=== PATIENT | female | born 1985 | race Caucasian/White ===

== ENCOUNTER 2017-09-09 16:20 | Outpatient (CLI) | payer BC | END 2017-09-09 16:21 | disposition home or self-care (01) | LOC: BICRAD 16:20 | PROVIDERS: ATTEND Family Medicine | DX: Z09 Encounter for follow-up examination after completed treatment for conditions other than malignant neoplasm (principal); Z87.39 Personal history of other diseases of the musculoskeletal system and connective tissue | CPT/HCPCS: 72081 ==

== ENCOUNTER 2019-12-02 12:51 | Day surgery (SDC) | payer BC ==
[2019-12-01 14:06] VITALS: BMI 35.2
[2019-12-02] MEDS ORDERED: Lidocaine 1% PF 5 ML VIAL ONE (13:01)
[2019-12-02] MEDS ORDERED: Sodium Bicarbonate 2.5 MEQ/5 ML VIAL ONE (13:01)
[2019-12-02 15:17] VITALS: BP 125/81; TEMP 98.2
--- NOTE | 2019-12-02 15:52 | ULT ---
PROCEDURE: US Thyroid Needle Bx PROVIDED CLINICAL HISTORY: Dominant nodule left lobe of thyroid gland. Fine-needle aspiration of this nodule was requested to COMPARISON: Thyroid ultrasound 10/30/2019 TECHNIQUE: The procedure including the risks and complications were explained to the patient, and informed conse nt was obtained. Limited sonographic evaluation of the left lobe of thyroid gland was performed. The large heterogeneous nodule in the superior pole left lobe of thyroid gland was localized. The are a was marked and then meticulously prepped and draped in usual sterile fashion. Skin and subcutaneous tissues were infiltrated with buffered 1% lidocaine for local anesthesia. Utili zing concurrent real-time ultrasound guidance, a total of 4 fine-needle aspiration specimens were obtained utilizing a 25-gauge needle. Hemostasis was achieved with direct pressure, and a dry sterile dressing was placed. The patient tolerated the procedure well and without immediate complication. IMPRESSION: Technically successful ultrasound-guided fine-needle aspiration of a dominant heterogeneous nodule le ft lobe of the thyroid gland. Pathology result is currently pending.
== END 2019-12-02 14:10 | disposition home or self-care (01) ==
LOC: ULT 12:51
PROVIDERS: ATTEND Otolaryngology Plastic Surgery within the Head & Neck
PROC: 0GBG3ZX Excision of Left Thyroid Gland Lobe, Percutaneous Approach, Diagnostic (ICD-10-PCS; principal; 2019-12-02)
PROC: BG44ZZZ Ultrasonography of Thyroid Gland (ICD-10-PCS; principal; 2019-12-02)
DX: E04.1 Nontoxic single thyroid nodule (principal); Z79.899 Other long term (current) drug therapy; Z88.8 Allergy status to other drugs, medicaments and biological substances
CPT/HCPCS: 60100; 76942; 88173

== ENCOUNTER 2022-05-28 15:21 | Outpatient (CLI) | payer OTHER ==
[2022-05-28 16:04] LABS: #Eosinphils 0.2 10x3/uL (0.0-0.5); #Monocytes 0.7 10x3/uL (0.0-1.1); #Neutrophils 4.6 10x3/uL (1.5-8.4); %Basophils 0.5 % (0.0-2.0); %Eosinophils 3.3 % (0.0-6.0); %Monocytes 9.8 % (0.0-10.0); %Neutrophils 62.1 % (40.0-75.0); Hemoglobin 13.6 g/dL (12.0-15.5); Mean Corpuscular HGB CONC 32.6 g/dL (32.0-36.0); Mean Corpuscular Hemoglobin 30.2 pg (27.0-33.0); Mean Corpuscular Volume 92.5 fl (81.6-98.3); Mean Platelet Volume 10.9 fl (7.4-10.4); Platelet Count 245 10x3/uL (150-450); RBC Distribution Width 13.1 % (11.5-14.5); Red Blood Cell (RBC) Count 4.51 10x6/uL (3.90-5.03); White Blood Cell (WBC) Count 7.4 10x3/uL (3.5-10.5)
[2022-05-28 16:15] LABS: Anion Gap 13 mmol/L (10-20); BUN (Urea Nitrogen) 13 mg/dL (7.0-18.7); Calc. Creatinine Clearance 0 mL/min (70-130); Calcium 8.6 mg/dL (7.8-10.44); Carbon Dioxide 25 mmol/L (22-29); Chloride 108 mmol/L (98-107); Estimated GFR 115; Glucose 78 mg/dL (70-105); Potassium 3.9 mmol/L (3.5-5.1); Sodium 142 mmol/L (136-145)
== END 2022-05-28 15:22 | disposition home or self-care (01) ==
LOC: LABBT 15:21
PROVIDERS: ATTEND Surgery
DX: Z01.818 Encounter for other preprocedural examination (principal); M79.89 Other specified soft tissue disorders
CPT/HCPCS: 80048; 85025; 93005; 93010

== ENCOUNTER 2022-06-04 11:58 | Day surgery (SDC) | payer OTHER ==
[2022-05-31 11:07] VITALS: BMI 25.7
[2022-06-04] MEDS ORDERED: Midazolam HCl 2 mg/2 ml Vial ONE (13:25)
[2022-06-04] MEDS ORDERED: fentaNYL PF 100 MCG/2 ML SYRINGE ONE (13:28)
[2022-06-04] MEDS ORDERED: Sodium Chloride 0.9% 100 ML ONE (13:45)
[2022-06-04] MEDS ORDERED: CEFAZOLIN 2 GM VIAL ONE (13:45)
[2022-06-04] MEDS ORDERED: PROPOFOL 200 MG/20 ML VIAL ONE (14:00)
[2022-06-04] MEDS ORDERED: Rocuronium Bromide 10 MG/ML (10ML VIAL) ONE (14:00)
[2022-06-04] MEDS ORDERED: Glycopyrrolate 0.2 MG/ML 5 ML SYRINGE ONE (14:00)
[2022-06-04] MEDS ORDERED: NEOSTIGMINE 3 MG/3 ML SYR 3 MG/3 ML SYRINGE ONE (14:00)
[2022-06-04] MEDS ORDERED: Lidocaine 1% PF 5 ML VIAL ONE (14:00)
[2022-06-04] MEDS ORDERED: Ondansetron PF 4 MG/2 ML Vial ONE (14:00)
[2022-06-04] MEDS ORDERED: Dexamethasone 20 MG/5 ML VIAL ONE (14:00)
[2022-06-04] MEDS ORDERED: Bupivacaine/Epinephrine 0.25% 30 ML VIAL ONE ×2 (14:13→14:37)
[2022-06-04] MEDS ORDERED: Bacitracin Zinc Ointment 30 gm TUBE ONE (14:37)
[2022-06-04] MEDS ORDERED: Meperidine HCl/PF 25 MG/ML VIAL ONE (15:13)
[2022-06-04] MEDS ORDERED: HYDROcodone/Acetaminophen 5/325 mg Tablet ONE (17:26)
== END 2022-06-04 17:40 | disposition home or self-care (01) ==
LOC: SDC 11:58
PROVIDERS: ATTEND Surgery
PROC: 0JBD0ZZ Excision of Right Upper Arm Subcutaneous Tissue and Fascia, Open Approach (ICD-10-PCS; principal; 2022-06-04)
PROC: 0JBR0ZZ Excision of Left Foot Subcutaneous Tissue and Fascia, Open Approach (ICD-10-PCS; principal; 2022-06-04)
PROC: 0JB10ZZ Excision of Face Subcutaneous Tissue and Fascia, Open Approach (ICD-10-PCS; principal; 2022-06-04)
PROC: 0JB00ZZ Excision of Scalp Subcutaneous Tissue and Fascia, Open Approach (ICD-10-PCS; principal; 2022-06-04)
DX: D36.11 Benign neoplasm of peripheral nerves and autonomic nervous system of face, head, and neck (principal); D36.13 Benign neoplasm of peripheral nerves and autonomic nervous system of lower limb, including hip; D36.12 Benign neoplasm of peripheral nerves and autonomic nervous system, upper limb, including shoulder; F17.290 Nicotine dependence, other tobacco product, uncomplicated; Z88.8 Allergy status to other drugs, medicaments and biological substances; Z79.899 Other long term (current) drug therapy
CPT/HCPCS: 88305; 88341; 88342; J1100; J2175; J2250; J2405; J2704; J3490